=== PATIENT | male | born 1995 | race Caucasian/White ===

== ENCOUNTER 2019-12-09 02:56 | Emergency (ER) | payer SELFPAY ==
[2019-12-09 03:15] VITALS: BP 153/105; PULSE 89; RESP 18; TEMP 36.9; O2SAT 98; BMI 22.4
--- NOTE | 2019-12-09 03:21 | ED_ITS ---
HPI - Dental/Oral General: Chief complaint: Dental/Oral Stated complaint: oral pain Time Seen by Provider: 12/09/19 03:04 Source: patient Mode of arrival: ambulatory Limitations: no limitations History of Present Illness: HPI Narrative: 24-year-old male states he has had dental pain over the last 2 hours. States it is in his right lower molar. He denies any difficulty opening his mouth or fevers. He rates his pain an 8 out of 10 and denies any worsening or improving factors. Associated symptoms: Denies fever(s) Review of Systems Const: Denies: fever(s), chills, body aches or change in appetite Eyes: Denies: blurry vision or eye discomfort ENMT: Reports: mouth pain Card: Denies: chest pain Resp: Denies: dyspnea GI: Denies: abdominal pain, nausea, vomiting or diarrhea : Denies: dysuria Musc: Denies: neck pain or back pain Skin/Breast: Denies: rash Neuro: Denies: headache(s) Psych: Denies: depression Bernabe/Lymph: Denies: easy bruising All/Imm: Denies: urticaria PFSH ED PFSH: Social History Smoking and tobacco status: current every day smoker Physical Exam HENMT: OTHER: Poor dentition with tenderness over right lower molar no trismus or abscess Course Vital Signs: Vital signs: Vital Signs Temperature 98.4 F 12/09/19 03:15 Pulse Rate 89 12/09/19 03:15 Respiratory Rate 18 12/09/19 03:15 Blood Pressure 153/105 12/09/19 03:15 Pulse Oximetry 98 12/09/19 03:15 MDM - Dental/Oral MDM Narrative: Medical decision making narrative: Patient presents with dental pain with no abscess or trismus. Patient is stable for discharge will place him on penicillin. He is to follow-up with a dentist as soon as possible. 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
[2019-12-09] MEDS: HYDROcodone-acetaminophen 5-325 mg Tablet 1 TAB PO (03:51)
[2019-12-09 03:52] VITALS: BP 154/100; PULSE 86; RESP 17; O2SAT 97
[2019-12-09 04:12] VITALS: BP 143/83; PULSE 86; RESP 16; O2SAT 97
== END 2019-12-09 04:14 | disposition home or self-care (01) ==
PROVIDERS: Emergency Provider Emergency Medicine
DX: K08.89 Other specified disorders of teeth and supporting structures (principal); F17.210 Nicotine dependence, cigarettes, uncomplicated
CPT/HCPCS: 12345; 99281; 99283

== ENCOUNTER 2020-03-19 17:15 | Emergency (ER) | payer SELFPAY ==
[2020-03-19 17:25] VITALS: BP 139/85; PULSE 112; RESP 14; TEMP 36.5; O2SAT 96; BMI 21.8
--- NOTE | 2020-03-19 17:30 | ED_ITS ---
HPI - Dental/Oral General: Chief complaint: Dental/Oral Stated complaint: dental pain Time Seen by Provider: 03/19/20 17:28 History of Present Illness: HPI Narrative: Patient is a 25-year-old male who comes to the ED with dental pain. Patient says symptoms started yesterday. He now has some right sided facial swelling on the right lower jaw. He rates the pain an 8 out of 10. He has called a dentist and has an appointment set up already and says he needs to be put on some antibiotics. Associated symptoms: Denies fever(s) or odynophagia Review of Systems Const: Denies: fever(s), chills or fatigue Eyes: Denies: change in vision or eye discomfort ENMT: Reports: dental pain; Denies: throat pain, odynophagia, nasal discharge or nasal congestion Card: Denies: chest pain, palpitations, edema, swelling of feet/ankles, dyspnea on exertion or orthopnea Resp: Denies: dyspnea, productive cough or non-productive cough GI: Denies: abdominal pain, nausea, vomiting, diarrhea, constipation or hematochezia : Denies: flank pain, difficulty urinating, dysuria or hematuria Musc: Denies: neck pain, back pain or extremity swelling Skin/Breast: Denies: rash or new lesions Neuro: Denies: headache(s), numbness in extremities or weakness in extremities PFSH ED PFSH: Social History Smoking and tobacco status: current every day smoker Physical Exam Const: COMMON NORMALS: no acute distress, patient oriented x3, healthy appearing and alert GENERAL APPEARANCE: cooperative and comfortable HENMT: COMMON NORMALS: normocephalic HEAD & SCALP: normocephalic FACE & SINUS: edema on the right mandible MOUTH: Normal oral and palatal mucosa present TEETH & GINGIVA: Yes abnormal tooth and associated gingiva lower right first molar tender and with associated gingival edema, Yes caries (extensive dental caries) and Yes poor dentition THROAT: posterior oropharynx normal and uvula midline Eye: COMMON NORMALS: Equal, round and reactive pupils present PUPIL: Yes Equal, round and reactive pupils present Neck/C-Spine: COMMON NORMALS: supple GENERAL: Yes normal visual inspection Resp: COMMON NORMALS: normal respiratory effort, No retractions, No use of accessory muscles and clear to auscultation bilaterally AUSCULTATION: clear to auscultation bilaterally Cardio: COMMON NORMALS: regular rate, regular rhythm, S1 normal heart sound present, S2 normal heart sound present, No gallops present (Cardio), No clicks present (Cardio), No murmurs present (Cardio) and Peripheral pulses 2+ throughout RATE: regular rate RHYTHM: regular rhythm HEART SOUNDS: S1 normal heart sound present and S2 normal heart sound present PERIPHERAL PULSES: Peripheral pulses 2+ throughout GI: COMMON NORMALS: Normal to inspection, nondistended, normoactive bowel sounds present, Soft to palpation, non-tender and no masses PALPATION: Yes Soft to palpation : COMMON NORMALS: Yes no CVA tenderness BLADDER/KIDNEY EXAM: Yes no CVA tenderness Back/Pelvis: COMMON NORMALS: no CVA tenderness Extremity: COMMON NORMALS: normal to inspection Neuro: COMMON NORMALS: patient oriented x3 and moves all extremities SENSORIUM/ORIENTATION: Yes alert Skin: COMMON NORMALS: no rashes or lesions noted GENERAL SKIN EXAM: no rashes or lesions noted and dry skin Course Vital Signs: Vital signs: Vital Signs Temperature 97.7 F 03/19/20 17:25 Pulse Rate 103 H 03/19/20 18:00 Respiratory Rate 12 03/19/20 18:00 Blood Pressure 130/80 03/19/20 18:00 Pulse Oximetry 97 03/19/20 18:00 MDM - Dental/Oral MDM Narrative: Medical decision making narrative: Patient is a 25-year-old male who comes to the ED with dental pain and right-sided facial swelling. Patient currently has an appointment set up with a dentist in the next several weeks. Patient had extensive dental caries and poor dentition with gingival edema. Patient was put on a prescription of clindamycin and told to follow-up with his dentist at next scheduled appointment. Return to ED precautions given. Patient understood agree with plan. Discharge Plan Discharge Patient Disposition: Home Clinical Impression: Pain due to dental caries Condition: Stable Prescriptions: New clindamycin HCl 150 mg capsule 300 mg PO QID 7 Days Qty: 56 RF: 0 No Action Naprosyn 500 mg tablet 500 mg PO BID PRN (Reason: pain) Qty: 20 RF: 0 Discharge Orders: Discharge Order (Routine); Ordered 03/19/20 Ordered By: Rodney Barajas Discharge Diet: Regular Discharge Activity: Resume usual activity Patient Instructions: Dental Abscess (ED), Dental Caries (ED) Activity Restrictions/Additional Instructions: Follow-up with medical provider as directed. Take medications as prescribed. Take ibuprofen or Tylenol for pain or fever. Return to the ER or your medical provider if condition worsens. Please read and understand discharge instructions. If any questions, please ask. 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
[2020-03-19] MEDS: clindamycin 150 mg Capsule 300 MG PO (17:54)
[2020-03-19] MEDS: HYDROcodone-acetaminophen 7.5-325 mg Tablet 1 TAB PO (17:54)
[2020-03-19 18:00] VITALS: BP 130/80; PULSE 103; RESP 12; O2SAT 97
== END 2020-03-19 18:01 | disposition home or self-care (01) ==
LOC: ER 18:32
PROVIDERS: Emergency Provider Physician Assistant
DX: K02.9 Dental caries, unspecified (principal); F17.210 Nicotine dependence, cigarettes, uncomplicated
CPT/HCPCS: 12345; 99281; 99283

== ENCOUNTER 2021-01-10 10:35 | Emergency (ER) | payer SELFPAY ==
[2021-01-10 10:53] VITALS: BP 120/81; PULSE 94; RESP 15; TEMP 36.8; O2SAT 97; BMI 23.7
--- NOTE | 2021-01-10 11:10 | W.ED.WOUNDLC ---
HPI - Wound/Laceration General: Chief Complaint: Wound/Laceration Stated Complaint: HIT IN FACE BY TIRE TOOL Time Seen by Provider: 01/10/21 11:10 Source: patient Mode of arrival: ambulatory Limitations: no limitations History of Present Illness: HPI narrative: Patient is a 25-year-old male who presents to ED today for evaluation of a facial laceration that he sustained while he was changing a tire. He states the tool he was using broke free and struck him in the forehead. He states his last tetanus was last year. Onset (ago): hour(s) Location: face Place: work Patient tetanus UTD: Yes Context: accidental Associated symptoms: Reports no associated symptoms; Denies nausea or vomiting Review of Systems Eyes: Denies: change in vision, blurry vision, photophobia, floaters or seeing flashes GI: Denies: nausea or vomiting Skin/Breast: Reports: other (laceration) Neuro: Denies: headache(s) PFSH ED PFSH: Social History Smoking and tobacco status: current every day smoker Physical Exam Const: COMMON NORMALS: no acute distress, average body habitus, patient oriented x3, no limitations, healthy appearing, alert and well nourished HENMT: COMMON NORMALS: normocephalic HEAD & SCALP: normocephalic HEAD IMAGES: 1. 1.0cm laceration Eye: GENERAL EYE: appearance normal, both eyes and all related structures Neuro: GILL COMA SCALE: document GCS findings [place] coma scale eye opening: Spontaneous [place] coma scale verbal response: Orientated Gill coma scale motor response: Obey commands [place] coma scale total score: 15 COMMON NORMALS: patient oriented x3, CN's II-XII intact bilaterally, moves all extremities, no focal motor deficits, no sensory deficits noted and gait normal SENSORIUM/ORIENTATION: Yes alert Procedures Laceration Laceration 1: Site: face Side (If applicable): left Size (cm): 1.0 Description: linear Depth: simple, single layer Local Anesthetic: other anesthetic (skin adhesive/glue) Pre-repair: irrigated extensively Course Vital Signs: Vital signs: Vital Signs Temperature 98.3 F 01/10/21 10:53 Pulse Rate 94 01/10/21 10:53 Respiratory Rate 15 01/10/21 10:53 Blood Pressure 120/81 01/10/21 10:53 Pulse Oximetry 97 01/10/21 10:53 MDM - Wound/Laceration MDM Narrative: Medical decision making narrative: Patient requested we glue laceration so he wouldn't have to take off work for suture removal. Ultimately I think this would be acceptable for repair. Was counseled on slight increase in size of scar which he was fine with. Infection precautions given. Discharge Plan Discharge Patient Disposition: Home Clinical Impression: Forehead laceration Qualifiers: Encounter type: initial encounter Qualified Code(s): S01.81XA - Laceration without foreign body of other part of head, initial encounter Condition: Stable Prescriptions: No Action Naprosyn 500 mg tablet 500 mg PO BID PRN (Reason: pain) Qty: 20 RF: 0 Discharge Orders: Discharge ED (Routine); Ordered 01/10/21 Ordered By: Hailey Robertson Patient Instructions: Laceration (ED), Skin Adhesive Care (ED) Activity Restrictions/Additional Instructions: Keep wound/laceration clean with warm soap and water twice daily. Monitor for signs of infection such as redness, swelling, increased pain, or drainage. Please seek medical re-evaluation if these occur. If you received sutures today these will need to be removed (unless you were told by the provider that they are absorbable). The provider should have discussed with you the length of time until removal. You may return to the emergency department for this service. If your wound was closed with Steri-Strips or glue/adhesive these will fall off within the next week or so. 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
== END 2021-01-10 11:33 | disposition home or self-care (01) ==
PROVIDERS: Emergency Provider Physician Assistant
DX: S01.81XA Laceration without foreign body of other part of head, initial encounter (principal); F17.210 Nicotine dependence, cigarettes, uncomplicated; W20.8XXA Other cause of strike by thrown, projected or falling object, initial encounter
CPT/HCPCS: 12011; 99282

== ENCOUNTER 2021-02-20 11:42 | Emergency (ER) | payer SELFPAY ==
[2021-02-20 11:53] VITALS: BP 151/96; PULSE 81; RESP 17; TEMP 37.1; O2SAT 99
--- NOTE | 2021-02-20 12:38 | W.ED.DENTAL ---
HPI - Dental/Oral General: Chief complaint: Dental/Oral Stated complaint: facial swelling/said infection in mouth Time Seen by Provider: 02/20/21 12:01 Source: patient Mode of arrival: ambulatory Limitations: no limitations History of Present Illness: HPI Narrative: Patient is a 26-year-old male who presents to ED today with a complaint of left lower dental pain and facial swelling. Patient tells me the tooth broke several days ago and he has had pain since. He states beginning yesterday he noticed some mild facial swelling. No trouble swallowing. No fevers. MD Complaint: tooth pain Onset (ago): day(s) Duration: constant Severity: severe Relieving factors: nothing Exacerbating factors: chewing Context: history of dental caries and trauma (mechanism) Associated symptoms: Reports no associated symptoms; Denies ear or mastoid pain, fever(s) or odynophagia Treatment prior to arrival: oral analgesic Review of Systems Const: Denies: fever(s), chills or body aches Eyes: Denies: change in vision ENMT: Reports: dental pain; Denies: throat pain, odynophagia, oral sores or ear or mastoid pain Card: Denies: chest pain Resp: Denies: dyspnea GI: Denies: nausea or vomiting Musc: Denies: neck pain Skin/Breast: Denies: rash Neuro: Denies: headache(s) PFS ED PFSH: Social History Smoking and tobacco status: current every day smoker Physical Exam Const: COMMON NORMALS: no acute distress, average body habitus, patient oriented x3, no limitations, healthy appearing, alert and well nourished GENERAL APPEARANCE: cooperative HENMT: COMMON NORMALS: normocephalic and atraumatic HEAD & SCALP: normocephalic and atraumatic FACE & SINUS: normal facial exam MOUTH: Normal oral and palatal mucosa present, lip normal and tongue normal TEETH & GINGIVA: Yes caries, Yes poor dentition and Yes other (floor of mouth is soft and non-elevated ) TEETH & GINGIVA IMAGES: 1. severely decayed fractured tooth with surrounding gingival edema; no obvious abscess at this time THROAT: posterior oropharynx normal Neck/C-Spine: COMMON NORMALS: full ROM, no lymphadenopathy and no meningeal signs GENERAL: No anterior neck swelling and No submandibular swelling Resp: COMMON NORMALS: normal respiratory effort Cardio: COMMON NORMALS: regular rate and regular rhythm RATE: regular rate RHYTHM: regular rhythm Neuro: COMMON NORMALS: patient oriented x3 SENSORIUM/ORIENTATION: Yes alert MENINGEAL SIGNS: Yes no meningeal signs Skin: COMMON NORMALS: no rashes or lesions noted GENERAL SKIN EXAM: no rashes or lesions noted Course Vital Signs: Vital signs: Vital Signs Temperature 98.8 F 02/20/21 11:53 Pulse Rate 81 02/20/21 11:53 Respiratory Rate 17 02/20/21 11:53 Blood Pressure 151/96 02/20/21 11:53 Pulse Oximetry 99 02/20/21 11:53 MDM - Dental/Oral MDM Narrative: Medical decision making narrative: Patient will be placed on antibiotics and given dental resources handout. Stressed the importance of dental follow-up. Return to ED precautions given. 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
== END 2021-02-20 12:52 | disposition home or self-care (01) ==
PROVIDERS: Emergency Provider Physician Assistant
DX: K08.89 Other specified disorders of teeth and supporting structures (principal); K02.9 Dental caries, unspecified; F17.210 Nicotine dependence, cigarettes, uncomplicated
CPT/HCPCS: 99281

== ENCOUNTER 2023-04-05 15:21 | Emergency (ER) | payer SELFPAY ==
[2023-04-05 15:25] VITALS: BP 142/91; PULSE 75; RESP 16; TEMP 36.7; O2SAT 100; BMI 23.1
--- NOTE | 2023-04-05 15:37 | ECG_ITS ---
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 Measurements Intervals [place] Rate: 77 P: 71 [place]: 211 QRS: 86 QRSD: 92 T: 66 QT: 368 QTc: 417 Interpretive Statements SINUS RHYTHM WITH FIRST DEGREE AV BLOCK No previous ECG available for comparison Electronically Signed On 04-05-2023 23:44:09 CDT by Iker Arellano M.D. [email or web address]
--- NOTE | 2023-04-05 16:02 | ED_ITS ---
HPI - Syncope General: Chief Complaint: Syncope Stated Complaint: passing out when he gets hot Time Seen by Provider: 04/05/23 15:33 Source: patient Mode of arrival: ambulatory Limitations: no limitations History of Present Illness: This patient comes to the emergency department today because he is concerned he might of gotten overheated yesterday and still has residual effects today. 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 He states he felt presyncopal during the end of the day. He states he did not actually pass out but felt lightheaded he states he was not aware of palpitations or chest pain. He states he was working some fluids but mostly caffeinated beverages throughout the day. He states he does not have a history of heat intolerance. He states that he did eat and drink afterwards when he went back inside the house. He awoke this morning and went to his usual workplace but just felt out of energy and had some muscle aches and other symptoms throughout the day. He states he has been drinking fluids and has urinated today. He states that his urine did not look particularly concentrated. He states he has not been recently ill. None of his children or his spouse are ill as well. He is not taking any [id number] decongestions antihistamines etc. He denies any street drug use. He he does not have a history of arrhythmias etc. Associated symptoms: Reports lightheadedness; Deny abdominal pain, chest pain, fever(s), headache(s) or nausea Review of Systems Const: Denies: fever(s) or chills Eyes: Denies: change in vision ENMT: Denies: throat pain, odynophagia, nasal discharge or nasal congestion Card: Reports: lightheadedness and pre-syncope; Denies: chest pain, palpitations or irregular heart rhythm Resp: Denies: dyspnea, productive cough or non-productive cough GI: Denies: abdominal pain, nausea, vomiting or diarrhea : Denies: flank pain, difficulty urinating, dysuria or oliguria Musc: Reports: muscle cramps; Denies: neck pain, back pain or extremity swelling Skin/Breast: Denies: rash Neuro: Denies: headache(s), numbness in extremities or weakness in extremities Endo: Denies: polyuria or polydipsia PFSH ED PFSH: Social History Smoking and tobacco status: current every day smoker Physical Exam Narrative: EXAM NARRATIVE: Patient is alert and does not appear to be in any acute distress. He answers questions appropriately during the conversation. Const: COMMON NORMALS: no acute distress, average body habitus and patient oriented x3 GENERAL APPEARANCE: cooperative and comfortable HENMT: COMMON NORMALS: normocephalic, Normal nasal mucous membranes and turbinates present, moist oral mucous membranes and oropharynx normal HEAD & SCALP: normocephalic FACE & SINUS: normal facial exam NOSE: Normal nasal mucous membranes and turbinates present Eye: COMMON NORMALS: Equal, round and reactive pupils present, EOMs intact bilaterally and conjunctivae normal CONJUNCTIVA: Yes conjunctivae normal PUPIL: Yes Equal, round and reactive pupils present Neck/C-Spine: COMMON NORMALS: full ROM, no lymphadenopathy and supple Chest: COMMONS NORMALS: normal inspection of the chest Resp: COMMON NORMALS: normal respiratory effort, No use of accessory muscles and clear to auscultation bilaterally AUSCULTATION: clear to auscultation bilaterally Cardio: COMMON NORMALS: regular rate, regular rhythm, No murmurs present (Cardio) and Peripheral pulses 2+ throughout RATE: regular rate RHYTHM: regular rhythm PERIPHERAL PULSES: Peripheral pulses 2+ throughout GI: COMMON NORMALS: Normal to inspection, nondistended, normoactive bowel sounds present and Soft to palpation PALPATION: Yes Soft to palpation : COMMON NORMALS: Yes no CVA tenderness BLADDER/KIDNEY EXAM: Yes no CVA tenderness Back/Pelvis: COMMON NORMALS: no CVA tenderness, thoracic and lumbar spine normal to inspection, no thoracic nor lumbar tenderness and thoraco-lumbar ROM normal Extremity: COMMON NORMALS: normal to inspection, full ROM, capillary refill no rmal, no calf tenderness and no pedal edema Neuro: COMMON NORMALS: patient oriented x3, moves all extremities, no focal motor deficits and no sensory deficits noted CRANIAL NERVES: Yes CN normal except as noted Psych: COMMON NORMALS: mental status grossly normal Skin: COMMON NORMALS: no rashes or lesions noted, no wounds and turgor normal GENERAL SKIN EXAM: no rashes or lesions noted and turgor normal Course Vital Signs: Vital signs: Vital Signs Temperature 98.0 F 04/05/23 15:25 Pulse Rate 66 04/05/23 16:49 Respiratory Rate 16 04/05/23 15:25 Blood Pressure 132/84 04/05/23 16:49 Pulse Oximetry 98 04/05/23 16:49 Oxygen Delivery Me thod Room Air 04/05/23 16:49 MDM - Syncope Medical Decision Making This patient made his way to the emergency department because of concerns about possible dehydration or other effects of being overheated yesterday. He was involved in hard work throughout the day yesterday approximately 8 hours in duration. 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 He states he did drink fluids but it was predominantly caffeine containing fluids yesterday. He had an episode where he felt lightheaded but did not lose consciousness or have syncope. He states he has had no issues with heat intolerance in the past. Clinical examination was reassuring. He was not tachycardic, or otherwise have any abnormal vital signs. Laboratories were obtained to ensure there was no electrolyte abnormality, volume depletion, rhabdomyolysis etc. He received a liter of fluids while awaiting laboratory work-up. Laboratories were reassuring without any evidence of electrolyte abnormality, significant volume depletion, muscle breakdown. There is also no no evidence of arrhythmia on resting EKG is as well as prolonged monitoring in the emergency department. Patient likely suffered some heat stress yesterday and is still having some residual effects. We talked about the importance of free water intake, reducing caffeine intake etc. He voiced understanding was stable for discharge at this time without any evidence of an ongoing emergency medical condition. Lab Data I reviewed the patient's lab results. 04/05/23 16:08 04/05/23 16:08 Laboratory Results WBC 6.86 10^3/uL (3.29-11.43) 04/05/23 16:08 RBC 5.11 10^6/uL (3.85-5.65) 04/05/23 16:08 Hgb 14.60 g/dL (11.27-16.99) 04/05/23 16:08 Hct 42.2 % (37-53) 04/05/23 16:08 MCV 82.6 fl (82-101) 04/05/23 16:08 MCH 28.6 pg (27-33) 04/05/23 16:08 MCHC 34.6 g/dL (30-55) 04/05/23 16:08 RDW 12.7 % (12.1-15.1) 04/05/23 16:08 Plt Count 217 10^3/cmm (157-399) 04/05/23 16:08 MPV 9.4 fL (7.4-10.4) 04/05/23 16:08 Neut % (Auto) 47.5 % 04/05/23 16:08 Lymph % (Auto) 42.6 % 04/05/23 16:08 [place] % (Auto) 8.2 % 04/05/23 16:08 Eos % (Auto) 1.0 % 04/05/23 16:08 Baso % (Auto) 0.6 % 04/05/23 16:08 Neut # (Auto) 3.26 10^3/uL (1.8-7.7) 04/05/23 16:08 Lymph # (Auto) 2.9 10^3/uL (0.8-4.8) 04/05/23 16:08 [place] # (Auto) 0.6 10^3/uL (0.2-0.9) 04/05/23 16:08 Eos # (Auto) 0.1 10^3/uL (0.0-0.8) 04/05/23 16:08 Baso # (Auto) 0.0 10^3/uL (0.0-0.1) 04/05/23 16:08 Nucleated RBC % (auto) 0 % 04/05/23 16:08 Nucleated RBCs # 0.0 /100WBC 04/05/23 16:08 Sodium 137 mmol/L (136-145) 04/05/23 16:08 Potassium 4.0 mmol/L (3.5-5.1) 04/05/23 16:08 Chloride 102 mmol/L (98-107) 04/05/23 16:08 Carbon Dioxide 25 mmol/L (22-29) 04/05/23 16:08 Anion Gap 14.0 (5-19) 04/05/23 16:08 BUN 13 mg/dL (6-20) 04/05/23 16:08 Creatinine 0.8 mg/dL (0.7-1.2) 04/05/23 16:08 GFR Calculation 114.3 mL/min (90-130) 04/05/23 16:08 Glucose 127 mg/dL (65-115) H 04/05/23 16:08 Calculated Osmolality 286 mOsm/kg (285-295) 04/05/23 16:08 Calcium 9.2 mg/dL (8.5-10.5) 04/05/23 16:08 Total Bilirubin 0.6 mg/dL (0.15-1.2) 04/05/23 16:08 AST 24 U/L (0-40) 04/05/23 16:08 ALT 13 U/L (0-41) 04/05/23 16:08 Alkaline Phosphatase 68 U/L (40-130) 04/05/23 16:08 Creatine Kinase 165 U/L (39-308) 04/05/23 16:08 CK-MM (CK-3) Cancelled 04/05/23 16:08 CK-MB (CK-2) Cancelled 04/05/23 16:08 CK-BB (CK-1) Cancelled 04/05/23 16:08 Creatine Kinase Interp Cancelled 04/05/23 16:08 Total Protein 7.0 g/dL (6.6-8.7) 04/05/23 16:08 Albumin 4.3 g/dL (3.5-5.2) 04/05/23 16:08 Globulin 2.7 g/dL (1.3-4.6) 04/05/23 16:08 Urine Color Yellow (Yellow) 04/05/23 16:15 Urine Appearance Clear (CLEAR) 04/05/23 16:15 Urine pH 8 (5-7) H 04/05/23 16:15 Ur Specific [place] 1.005 (1.005-1.030) 04/05/23 16:15 Urine Protein Trace (Negative) 04/05/23 16:15 Urine Glucose (UA) Norm (Normal) 04/05/23 16:15 Urine Ketones Negative (Negative) 04/05/23 16:15 Urine Blood Neg (Negative) 04/05/23 16:15 Urine Nitrate Negative (Negative) 04/05/23 16:15 Urine Bilirubin Neg (Negative) 04/05/23 16:15 Prot Sulfosalicylic Acd Negative (Negative) 04/05/23 16:15 Urine Urobilinogen Norm mg/dL (Negative) 04/05/23 16:15 Ur Leukocyte Esterase Negative (Negative) 04/05/23 16:15 Urine RBC 0-4 /hpf (0-2) H 04/05/23 16:15 Urine WBC 0-4 /hpf (0-5) H 04/05/23 16:15 Ur Squamous Epith Cells 0-4 /hpf (0-5) H 04/05/23 16:15 Amorphous Sediment Not Reportable 04/05/23 16:15 Urine Bacteria Trace /hpf (NONE) 04/05/23 16:15 No radiology studies performed this visit EKG Data EKG 1: I personally reviewed and interpreted this EKG as follows: Interpretation: Resting EKG reveals a ventricular rate of 77 bpm. Slightly prolonged [place] interval at 211 ms. QRS duration is normal. Corrected QT intervals normal. Normal axis. Consistent with first-degree AV block. No other acute changes noted at this time. Discharge Plan Discharge Patient Disposition: Home Clinical Impression: Heat stress Condition: Stable Prescriptions: No Action No Known Home Medications Discharge Orders: Discharge ED (Routine); Ordered 04/05/23 Ordered By: Diego Hernandez Discharge Diet: Usual diet Discharge Activity: Increase activity as tolerated Patient Instructions: Opioid Safety, Pain Management Activity Restrictions/Additional Instructions: As we discussed there was no evidence of a serious condition as a result of your overheating yesterday. It is important to drink at least 1-2 quarts of regular water or sports drinks daily in addition to your other fluid intake. Try to reduce your caffeine intake as caffeine also can contribute to dehydration. You should increase your activity as tolerated. If you have any new or worsening symptoms you are welcome to return to the emergency department for reevaluation. Coding Level of Care Code ED Tetryl Screen Operator for Jimi Jang
[2023-04-05] MEDS: lactated ringers 1,000 ML 999 ML IV (16:12)
[2023-04-05 16:22] LABS: Basophils % 0.6 %; Eosinophils # 0.1 10^3/uL (0.0-0.8); Hematocrit 42.2 % (37-53); Lymphocytes # 2.9 10^3/uL (0.8-4.8); Lymphocytes % 42.6 %; Mean Corpuscular HGB Conc 34.6 g/dL (30-55); Mean Corpuscular Hemoglobin 28.6 pg (27-33); Mean Corpuscular Volume 82.6 fl (82-101); Mean Platelet Volume 9.4 fL (7.4-10.4); Monocytes # 0.6 10^3/uL (0.2-0.9); Monocytes % 8.2 %; Neutrophils # 3.26 10^3/uL (1.8-7.7); Neutrophils % 47.5 %; Nucleated Red Blood Cells % 0 %; Platelet Count 217 10^3/cmm (157-399); Red Blood Count 5.11 10^6/uL (3.85-5.65); Red Cell Distribution Width 12.7 % (12.1-15.1); White Blood Count 6.86 10^3/uL (3.29-11.43)
[2023-04-05 16:38] LABS: Alanine Aminotransferase 13 U/L (0-41); Albumin Level 4.3 g/dL (3.5-5.2); Alkaline Phosphatase 68 U/L (40-130); Blood Urea Nitrogen 13 mg/dL (6-20); Calcium 9.2 mg/dL (8.5-10.5); Carbon Dioxide 25 mmol/L (22-29); Chloride 102 mmol/L (98-107); Globulin 2.7 g/dL (1.3-4.6); Glomerular Filtration Rate 114.3 mL/min (90-130); Glucose 127 mg/dL (65-115); Osmolality Calculated 286 mOsm/kg (285-295); Sodium 137 mmol/L (136-145); Total Bilirubin 0.6 mg/dL (0.15-1.2)
[2023-04-05 16:46] LABS: Aspartate Amino Transferase 24 U/L (0-40)
[2023-04-05 16:49] VITALS: BP 132/84; PULSE 66; O2SAT 98
[2023-04-05 17:00] LABS: Add Urine Microscopic? YES; Bilirubin Urine Neg (Negative); Blood Urine Neg (Negative); Glucose Urine UA Norm (Normal); Ketones Urine Negative (Negative); Leukocyte Esterase Urine Negative (Negative); Nitrate Urine Negative (Negative); Protein Urine Trace (Negative); Specific Gravity, Urine 1.005 (1.005-1.030); Sulfosalicylic Acid Urine Negative (Negative); Urine Appearance Clear (CLEAR); Urine Color Yellow (Yellow); Urobilinogen Urine Norm (Negative); pH Urine 8 (5-7)
[2023-04-05 17:01] LABS: Add Urine Culture? No; Bacteria Urine TRACE /hpf; RBC Urine 0-4 /hpf (0-2); Squamous Epithelial Cell Urine 0-4 /hpf (0-5); WBC Urine 0-4 /hpf (0-5)
[2023-04-05 17:21] LABS: Creatine Phosphokinase 165 U/L (39-308)
== END 2023-04-05 18:00 | disposition home or self-care (01) ==
PROVIDERS: Emergency Provider Emergency Medicine
DX: T67.8XXA Other effects of heat and light, initial encounter (principal); X30.XXXA Exposure to excessive natural heat, initial encounter
CPT/HCPCS: 80053; 81001; 82550; 85025; 93005; 96360; 99284; J7120

== ENCOUNTER 2024-08-19 17:34 | Emergency (ER) | payer SELFPAY ==
[2024-08-19 17:38] VITALS: BP 143/93; PULSE 109; RESP 16; TEMP 36.7; O2SAT 98; BMI 23.7
[2024-08-19 18:27] VITALS: BP 147/93; PULSE 75; O2SAT 99
[2024-08-19 18:35] VITALS: PULSE 87; O2SAT 95
--- NOTE | 2024-08-19 18:41 | W.ED.DENTAL ---
HPI - Dental/Oral General: Chief complaint: Headache Stated complaint: headache Time Seen by Provider: 08/19/24 17:51 History of Present Illness: This patient is a 29-year-old white male who presents to the emergency department stating he has left lower toothache with possible infection. Patient has been dealing with dental decay for many years and frequent infections. He states he is waiting for a dentist to pull all of his teeth. He has not had a fever. Most recent episode started yesterday. Related Data Previous Rx's ?Medication ?Instructions ?Recorded clindamycin HCl 300 mg capsule 300 mg PO QID 10 days #40 caps 08/19/24 hydrocodone 5 mg-acetaminophen 325 1 tab PO Q4H #30 tabs 08/19/24 mg tablet Allergies Allergy/AdvReac Type Severity Reaction Status Date / Time levetiracetam (From [facility]) Allergy ALGY-Anaphy Verified 04/05/23 15:39 laxis Review of Systems General: Reports: 10 or more systems reviewed and unremarkable except in HPI and below ENMT: Reports: dental pain [facility] ED PFSH: Social History Smoking and tobacco/nicotine status: current every day tobacco/nicotine user Physical Exam Const: COMMON NORMALS: patient oriented x3 and no limitations GENERAL APPEARANCE: cooperative and comfortable OTHER: Mild distress secondary to toothache. HENMT: COMMON NORMALS: normocephalic, atraumatic, Normal nasal mucous membranes and turbinates present and moist oral mucous membranes HEAD & SCALP: normal to inspection, normocephalic and atraumatic FACE & SINUS: normal facial exam NOSE: Normal nasal mucous membranes and turbinates present TEETH & GINGIVA: Yes poor dentition and Yes other (Many decayed teeth down to the gumline. ) OTHER: Left lower molars with swelling of the gum and mild erythema. Eye: COMMON NORMALS: Equal, round and reactive pupils present, EOMs intact bilaterally and conjunctivae normal GENERAL EYE: appearance normal, both eyes and all related structures CONJUNCTIVA: Yes conjunctivae normal PUPIL: Yes Equal, round and reactive pupils present Neck/C-Spine: COMMON NORMALS: supple and no JVD Chest: COMMONS NORMALS: normal inspection of the chest Resp: COMMON NORMALS: normal respiratory effort and clear to auscultation bilaterally AUSCULTATION: clear to auscultation bilaterally Cardio: COMMON NORMALS: no JVD, regular rate, regular rhythm, No gallops present (Cardio), No murmurs present (Cardio) and No rub (Cardio) RATE: regular rate RHYTHM: regular rhythm GI: COMMON NORMALS: Normal to inspection, nondistended, normoactive bowel sounds present, Soft to palpation and non-tender AUSCULTATION: Yes normoactive bowel sounds PALPATION: Yes Soft to palpation : COMMON NORMALS: Yes no CVA tenderness BLADDER/KIDNEY EXAM: Yes no CVA tenderness Back/Pelvis: COMMON NORMALS: no CVA tenderness and thoracic and lumbar spine normal to inspection Extremity: COMMON NORMALS: normal to inspection Neuro: COMMON NORMALS: patient oriented x3 and CN's II-XII intact bilaterally Psych: COMMON NORMALS: mental status grossly normal, Normal thought process present and cooperative THOUGHT PROCESS: Normal thought process present Skin: COMMON NORMALS: no rashes or lesions noted, turgor normal and no jaundice GENERAL SKIN EXAM: no rashes or lesions noted and turgor normal Course Vital Signs: Vital signs: Vital Signs Temperature 98.0 F 08/19/24 17:38 Pulse Rate 109 H 08/19/24 17:38 Respiratory Rate 16 08/19/24 17:38 Blood Pressure 143/93 08/19/24 17:38 Pulse Oximetry 98 08/19/24 17:38 Oxygen Delivery Me thod Room Air 08/19/24 17:38 MDM - Dental/Oral Medical Decision Making Patient was placed on clindamycin and hydrocodone. He was given his first doses in the emergency department. He was discharged in stable condition instructed to follow-up with a dentist to soon as possible. No radiology studies performed this visit Discharge Plan Discharge Patient Disposition: Home Clinical Impression: Dental decay, Toothache Condition: Stable Prescriptions: New hydrocodone-acetaminophen 5-325 mg tablet 1 tab PO Q4H Qty: 30 0RF clindamycin HCl 300 mg capsule 300 mg PO QID 10 Days Qty: 40 0RF Discharge Orders: Discharge ED (Routine); Ordered 08/19/24 Ordered By: Abraham Barahona Patient Instructions: Opioid Safety, Pain Management, Toothache Activity Restrictions/Additional Instructions: Follow-up with a dentist to soon as possible. Print Language: Luxembourger Coding Level of Care Code ED Filament Welder for Jimi Jang
[2024-08-19 18:45] VITALS: PULSE 78; O2SAT 95
[2024-08-19] MEDS: HYDROcodone-acetaminophen 5-325 mg Tablet 2 TAB PO (18:53)
[2024-08-19] MEDS: clindamycin 150 mg Capsule 300 MG PO (18:54)
[2024-08-19 18:55] VITALS: PULSE 89; O2SAT 97
[2024-08-19 19:00] VITALS: BP 134/85; PULSE 89; RESP 16; O2SAT 97
== END 2024-08-19 19:00 | disposition home or self-care (01) ==
PROVIDERS: Emergency Provider Emergency Medicine
DX: K08.89 Other specified disorders of teeth and supporting structures (principal); K02.9 Dental caries, unspecified; Z72.0 Tobacco use
CPT/HCPCS: 99283

== ENCOUNTER 2024-08-31 17:11 | Emergency (ER) | payer SELFPAY ==
[2024-08-31 17:21] VITALS: BP 142/94; PULSE 80; TEMP 36.9; O2SAT 99; BMI 23.0
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
[2024-08-31] MEDS: bacitracin ointment Pkt 1 EACH TOPICAL (18:21)
== END 2024-08-31 18:30 | disposition home or self-care (01) ==
PROVIDERS: Emergency Provider Nurse Practitioner Family
DX: S00.81XA Abrasion of other part of head, initial encounter (principal); Z72.0 Tobacco use; X58.XXXA Exposure to other specified factors, initial encounter
CPT/HCPCS: 99283